=== PATIENT | female | born 1960 | race Caucasian/White ===

== ENCOUNTER → 2019-12-06 11:53 | Outpatient (BNVA) | payer MEDICARE, SELFPAY | PROVIDERS: Family Provider Nurse Practitioner Family; Visit Provider Nurse Practitioner Family | DX: R53.83 Other fatigue (principal); R51.9 Headache, unspecified; Z13.6 Encounter for screening for cardiovascular disorders; Z79.899 Other long term (current) drug therapy | CPT/HCPCS: 80053; 80061; 82306; 82607; 83735; 84443; 85025 ==

== ENCOUNTER 2019-12-13 11:12 | Outpatient (CLI) | payer MEDICARE, SELFPAY ==
--- NOTE | 2019-12-13 11:45 | CT_ITS ---
WS: [id number] CT HEAD NONCONTRAST HISTORY: chronic daily headache, worsening over last 6-8 months TECHNIQUE: Contiguous axial imaging performed through the brain in 2.5 mm imaging. Bone and soft tiss ue windows. All CT scans at [facility] use at least one of these dose optimization techniq ues: automated exposure control; mA and/or kV adjustment per patient size (includes targeted exams wh ere dose is matched to clinical indication); or iterative reconstruction. DLP: 752.58 mGycm COMPARISON: 03/24/2012 No acute intracranial hemorrhage, midline shift or mass effect. Mild atrophy and mild chronic microvascular ischemic disease. No focal areas sulcal effacement. No pr ior infarcts. Ventricles: Normal size with no hydrocephalus. Paranasal sinuses: As visualized are clear. Mastoid air cells: Well pneumatized. Calvarium and scalp: Skull is intact with no soft tissue edema or swelling. CT/CT head wo con* [id number] IMPRESSION: Mild atrophy and chronic ischemic disease. No acute infarcts or edema.
== END 2019-12-13 11:13 | disposition home or self-care (01) ==
LOC: RADWPI 11:17
PROVIDERS: PCP Nurse Practitioner Family; Visit Provider Nurse Practitioner Family
DX: R51.9 Headache, unspecified (principal); I67.82 Cerebral ischemia; G31.9 Degenerative disease of nervous system, unspecified
CPT/HCPCS: 70450

== ENCOUNTER → 2020-07-12 11:39 | Outpatient (BNVA) | payer MEDICARE, SELFPAY | PROVIDERS: PCP Nurse Practitioner Family; Visit Provider Nurse Practitioner Family | DX: Z12.39 Encounter for other screening for malignant neoplasm of breast (principal); Z78.0 Asymptomatic menopausal state; F41.9 Anxiety disorder, unspecified; E55.9 Vitamin D deficiency, unspecified; Z13.6 Encounter for screening for cardiovascular disorders | CPT/HCPCS: 80053; 80061; 82306; 85025 ==

== ENCOUNTER → 2020-12-07 11:00 | Outpatient (BNVA) | payer MEDICARE, SELFPAY | PROVIDERS: PCP Nurse Practitioner Family; Visit Provider Nurse Practitioner Family | DX: E55.9 Vitamin D deficiency, unspecified (principal); Z13.6 Encounter for screening for cardiovascular disorders; J45.909 Unspecified asthma, uncomplicated; J20.9 Acute bronchitis, unspecified; Z20.822 Contact with and (suspected) exposure to COVID-19 | CPT/HCPCS: 71046; 80053; 80061; 82306; 85025; 87635 ==

== ENCOUNTER → 2021-09-28 09:13 | Outpatient (BNVA) | payer MEDICARE, SELFPAY | PROVIDERS: PCP Nurse Practitioner Family; Visit Provider Nurse Practitioner Family | DX: J45.909 Unspecified asthma, uncomplicated (principal); E78.5 Hyperlipidemia, unspecified; R60.9 Edema, unspecified; Z78.0 Asymptomatic menopausal state; M79.662 Pain in left lower leg; E55.9 Vitamin D deficiency, unspecified; Z13.6 Encounter for screening for cardiovascular disorders | CPT/HCPCS: 71046; 80053; 80061; 82306; 82607; 83735; 83880; 84443; 84550; 85025; 85379; 85651; 86038; 86140; 86200; 86431 ==

== ENCOUNTER 2021-10-02 09:59 | Outpatient (CLI) | payer MEDICARE, SELFPAY ==
--- NOTE | 2021-10-02 10:15 | USCV_ITS ---
Luis Roy Age: 61 Gender: F : 1960 Exam Date: 10/02/2021 10:31 Ordering Phys: Sandra Park MICROPALEONTOLOGIST MICROPALEONTOLOGIST Technologist: Harshal Cho Exam Location: [facility] [place] Indication: swelling/pain PROCEDURES: Venous duplex imaging was performed in only the left lower extremity. In addition, the posterior tibial veins were evaluated. In addition, the posterior tibial and peroneal trunk were evaluated. FINDINGS: All veins examined appear free of thrombus. No filling defects on color Doppler flow analysis. Vein flow and caliber vary with respiration. Increase in venous flow with augmentation. All veins appear compressible.. CONCLUSIONS No evidence of left lower extremity DVT. Jeramy Magana MD (Electronically Signed) Final Date: 02 October 2021 16:24 S
== END 2021-10-02 10:00 | disposition home or self-care (01) ==
LOC: RAD 10:01
PROVIDERS: PCP Nurse Practitioner Family; Visit Provider Nurse Practitioner Family
DX: M79.662 Pain in left lower leg (principal); M79.89 Other specified soft tissue disorders
CPT/HCPCS: 93971

== ENCOUNTER 2021-11-21 11:39 | Outpatient (CLI) | payer MEDICARE, SELFPAY ==
--- NOTE | 2021-11-21 11:52 | MM_ITS ---
WS: [id number] BILATERAL SCREENING DIGITAL MAMMOGRAM WITH CAD HISTORY: Z12.31 - Encounter for screening mammogram for malignant ... COMPARISON: 08/31/2018 Bilateral CC and MLO views with tomosynthesis and synthetic mammography submitted. Computer aided det ection analyzed. Breast composition: There are scattered areas of fibroglandular density. No suspicious masses, microc alcifications or architectural distortion. Stable 8mm nodule upper outer quadrant RIGHT breast is pro bably a lymph node. MM/[place] [id number] IMPRESSION: BI-RADS: 2-Benign FOLLOW UP: 1 Year Follow-up
== END 2021-11-21 11:40 | disposition home or self-care (01) ==
LOC: RAD 11:40
PROVIDERS: PCP Nurse Practitioner Family; Visit Provider Nurse Practitioner Family
DX: Z12.31 Encounter for screening mammogram for malignant neoplasm of breast (principal)
CPT/HCPCS: 77067

== ENCOUNTER → 2021-12-11 08:28 | Outpatient (BNVA) | payer MEDICARE, SELFPAY | PROVIDERS: PCP Nurse Practitioner Family; Referring Provider Nurse Practitioner Family; Visit Provider Internal Medicine Rheumatology | DX: M05.79 Rheumatoid arthritis with rheumatoid factor of multiple sites without organ or systems involvement (principal); Z71.6 Tobacco abuse counseling; Z79.899 Other long term (current) drug therapy; M10.9 Gout, unspecified; Z71.85 Encounter for immunization safety counseling; Z11.59 Encounter for screening for other viral diseases; Z11.1 Encounter for screening for respiratory tuberculosis; Z86.16 Personal history of COVID-19; K21.9 Gastro-esophageal reflux disease without esophagitis | CPT/HCPCS: 99204 ==

== ENCOUNTER → 2022-03-04 11:53 | Outpatient (BNVA) | payer MEDICARE, SELFPAY | PROVIDERS: PCP Nurse Practitioner Family; Visit Provider Nurse Practitioner Family | DX: M10.9 Gout, unspecified (principal); E78.5 Hyperlipidemia, unspecified; E55.9 Vitamin D deficiency, unspecified; K21.9 Gastro-esophageal reflux disease without esophagitis; R60.9 Edema, unspecified; J30.2 Other seasonal allergic rhinitis; J45.909 Unspecified asthma, uncomplicated | CPT/HCPCS: 80053; 80061; 82306; 82607; 83721; 84443; 84550; 85025 ==

== ENCOUNTER → 2024-01-13 12:39 | Outpatient (BNVA) | payer MEDICARE, SELFPAY | PROVIDERS: PCP Nurse Practitioner Family; Visit Provider Nurse Practitioner Family | DX: E55.9 Vitamin D deficiency, unspecified; I10 Essential (primary) hypertension; E78.5 Hyperlipidemia, unspecified; Z79.899 Other long term (current) drug therapy | CPT/HCPCS: 80053; 80061; 82306; 82607; 83036; 83735; 84443; 85025 ==

== ENCOUNTER → 2024-06-28 14:47 | Outpatient (BNVA) | payer MEDICARE, SELFPAY | PROVIDERS: PCP Nurse Practitioner Family; Visit Provider Nurse Practitioner Family | DX: F41.9 Anxiety disorder, unspecified (principal); F32.A Depression, unspecified; E78.5 Hyperlipidemia, unspecified; E55.9 Vitamin D deficiency, unspecified | CPT/HCPCS: 80053; 80061; 82306; 82607; 84443; 85025 ==

== ENCOUNTER → 2024-08-04 10:08 | Outpatient (BNVA) | payer MEDICARE, SELFPAY | PROVIDERS: PCP Nurse Practitioner Family; Visit Provider Nurse Practitioner Family | DX: D48.5 Neoplasm of uncertain behavior of skin (principal); L91.8 Other hypertrophic disorders of the skin; D22.5 Melanocytic nevi of trunk; L81.4 Other melanin hyperpigmentation; L57.8 Other skin changes due to chronic exposure to nonionizing radiation; I78.8 Other diseases of capillaries; L57.0 Actinic keratosis; X32.XXXA Exposure to sunlight, initial encounter | CPT/HCPCS: 17000; 99203 ==

== ENCOUNTER → 2024-10-07 11:16 | Outpatient (BNVA) | payer MEDICARE, SELFPAY | PROVIDERS: PCP Nurse Practitioner Family; Visit Provider Nurse Practitioner Family | DX: L57.0 Actinic keratosis (principal); X32.XXXA Exposure to sunlight, initial encounter; D48.5 Neoplasm of uncertain behavior of skin; L91.8 Other hypertrophic disorders of the skin; L57.8 Other skin changes due to chronic exposure to nonionizing radiation; L81.4 Other melanin hyperpigmentation | CPT/HCPCS: 99213 ==

== ENCOUNTER 2024-11-24 18:22 | Emergency (ER) | payer MEDICARE, SELFPAY ==
[2024-11-24] VITALS (7 sets, daily range): BP systolic 126–210; BP diastolic 74–89; PULSE 63–73; TEMP 36.8; O2SAT 91–98
--- NOTE | 2024-11-24 18:28 | ECG_ITS ---
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
--- NOTE | 2024-11-24 20:46 | ECG_ITS ---
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 Measurements Intervals [place] Rate: 60 P: 68 IN: 147 QRS: 57 QRSD: 94 T: 189 QT: 387 QTc: 387 Interpretive Statements SINUS RHYTHM WITH SINUS ARRHYTHMIA ST DEVIATION AND MODERATE T-WAVE ABNORMALITY, CONSIDER LATERAL ISCHEMIA [-0.1+ mV T-WAVE IN I/aVL/V5/V6] Compared to ECG 11/24/2024 18:28:33 No significant changes Electronically Signed On 11-24-2024 21:00:37 CDT by Morteza Guerin M.D. [id number] [id number]
[2024-11-24 21:15] LABS: Hematocrit 42.7 % (36-47); Hemoglobin 14.40 g/dL (11.27-16.99); Mean Corpuscular HGB Conc 33.7 g/dL (30-55); Mean Corpuscular Hemoglobin 32.6 pg (27-33); Mean Corpuscular Volume 96.6 fl (85-98); Nucleated Red Blood Cells % 0 %; Platelet Count 354 10^3/cmm (157-399); Red Blood Count 4.42 10^6/uL (3.85-5.65); White Blood Count 9.69 10^3/uL (3.29-11.43)
--- NOTE | 2024-11-24 21:20 | ED_ITS ---
HPI - General Adult 2 General: Chief complaint: General Medical Stated complaint: HBP and tingly and numbess on both sides Time Seen by Provider: 11/24/24 20:08 History of Present Illness: 64yo F w/pmhx of HTN, COPD/asthma, curre nt smoker, GERD, CVA w/mild R sided weakness presents w/cc of feeling unwell. Patient has not been feeling well for the past few days. What brought her to the emergency department was an episode today where she started to feel flushed, sweaty, tingly. She was also experiencing palpitations. She states that her feet were on fire and she had paresthesias of her scalp, chest and hands. She also measured her blood pressure at that time and it was high. She has been diagnosed w/HTN but has not been taking her medications for fear of allergic reaction. Patient states that she suffers from severe anxiety and has panic attacks. She has not had a fever. She denies malaise, chills or rigors. Patient is experiencing a little bit of sharp and stabbing chest tightness (no ongoing pain) which are intermittent, not radiating to the neck, jaw or arms and is not clearly exertional. She states breathing makes it a bit worse but otherwise no triggers. She has felt a bit more short of breath with exertion and has been using her inhalers more often. She denies abd pain but has felt a bit nauseated. She's not vomited. No diarrhea, dysuria or increased frequency. Related Data Home Medications ?Medication ?Instructions ?Recorded ?Confirmed acetaminophen 500 mg capsule 500 mg PO Q6H PRN 2 11/19/24 Previous Rx's ?Medication ?Instructions ?Recorded ergocalciferol (vitamin D2) 1,250 1,250 mcg PO .weekly #12 caps 02/05/24 mcg (50,000 unit) capsule mecobalamin (vitamin B12) 5,000 5,000 mcg PO DAILY #90 tabs 02/05/24 mcg disintegrating tablet albuterol sulfate 2.5 mg/3 mL 2.5 mg (3 mL) inhalation QID PRN 06/28/24 (0.083 %) solution for nebulization shortness of breat h or wheezing #180 mL atorvastatin 10 mg tablet (Lipitor) 10 mg PO DAILY #90 tabs 07/02/24 buspirone 10 mg tablet See Rx Instructions .Route 0 09/01/24 .COMPLEX #60 tabs albuterol sulfate 90 mcg/actuation See Rx Instructions .Route 11/19/24 aerosol inhaler .COMPLEX #18 grams losartan 100 mg tablet 100 mg PO DAILY #30 tabs 12/04 nicotine See Rx Instructions transder mal 11/19/24 21mg/24hr-14mg/24hr-7mg/24hr daily .COMPLEX #56 patche s transderm patches,sequentl pantoprazole 40 mg tablet,delayed 40 mg PO DAILY #30 t abs 11/19/24 release (Protonix) Allergies Allergy/AdvReac Type Severity Reaction Status Date / Time cefaclor (From [facility]) Allergy Severe cardiac Verified 11/24/24 18:33 arrest Penicillins Allergy Severe hives Verified 11/24/24 18:33 tetanus and diphtheria Allergy Severe swelling Verified 11/24/24 18:33 toxoids acetaminophen (From Percocet) Allergy Unknown Unknown Verified 11/24/24 18:33 codeine Allergy Unknown Unknown Verified 11/24/24 18:33 erythromycin base Allergy Unknown Unknown Verified 11/24/24 18:33 iodine Allergy Unknown Unknown Verified 11/24/24 18:33 NSAIDS (Non-Steroidal Allergy Unknown unknown Verified 11/24/24 18:33 Anti-Inflamma oxycodone (From Percocet) Allergy Unknown Unknown Verified 11/24/24 18:33 propoxyphene (From Allergy Unknown Unknown Verified 11/24/24 18:33 Darvocet-N) tramadol Allergy Unknown Unknown Verified 11/24/24 18:33 Sulfa (Sulfonamide Allergy unknown Verified 11/24/24 18:33 Antibiotics) PFSH ED 2 PFSH: Medical History (Updated 11/25/24 @ 00:53 by Chanelle Desouza MD) Psychiatric care Immunization counseling High risk medication use Gout GERD (gastroesophageal reflux disease) Seropositive rheumatoid arthritis of multiple sites Hiatal hernia TMJ (dislocation of temporomandibular joint) Back injury Asthma Chronic GERD Surgical History Previous back surgery H/O: section Family History Father CAD (coronary artery disease) Mother Hypertension Rheumatoid arthritis Other Cancer Diabetes Family history of premature coronary artery disease Lung disease Stroke Denies family history of Lupus Chronic kidney disease (CKD) Social History Smoking and tobacco/nicotine status: current every day tobacco/nicotine user (1 PPD) Second hand smoke exposure: Yes Alcohol intake: never Substance/Drug Use: never Caregiver/support person: Yes (spouse) Lives independently: Yes Household members: spouse Marital status: service: No Current occupational status: disabled Current gender identity: Female Special eneida needs: No Physical Exam 2 Narrative: EXAM NARRATIVE: Vital signs were reviewed. Patient is alert and oriented. Patient is breathing comfortably, no increased WOB or accessory muscle use. SpO2 is above 95% on RA. She has occasional and mild expiratory wheeze. No hypotension or tachycardia. She is quite hypertensive. Patient is moving all extremities, no deformity or gross injury. No LE edema or asymmetry. On exam, patient is very anxious, reports high anxiety. Course 2 Vital Signs: Vital signs: Vital Signs Temperature 98.3 F 11/24/24 18:23 Pulse Rate 67 11/25/24 00:30 Respiratory Rate 17 11/25/24 00:30 Blood Pressure 134/68 11/25/24 00:30 Pulse Oximetry 94 11/25/24 00:30 Oxygen Delivery Me thod Room Air 11/25/24 00:30 MDM - General Adult Medical Decision Making Patient is a 64-year-old female with a history of asthma/COPD, high blood pressure, anxiety and panic attacks presents with a chief complaint of episode of nausea, sweating, tingling in extremities and scalp and anxiety. Differential diagnosis includes but is not limited to, ACS, palpitations, muscle cramps, dehydration, electrolyte abnormality, underlying illness such as pneumonia, urinary tract infection, COPD/asthma exacerbation, anxiety/panic attack, asymptomatic hypertension vs hypertensive emergency. On initial exam, patient is alert, oriented and does not appear toxic. She is quite hypertensive but on repeat measurement this decreases significantly without any intervention. Patient does not appear to have any new neurologic deficits and paresthesias and chest tightness have resolved with ativan treatment. On reassessment, patient is feeling much better. She was screened with CBC, CMP, troponin, BNP, EKG. Patient was also treated for her high blood pressure with her home medication. Her repeat blood pressure is 157/87 and she states she is feeling much less anxious. Patient has a normal white blood cell count and is not anemic. She does not have any actionable electrolyte abnormalities. She has a minimally elevated troponin with a negative delta (less than 4). UA does not demonstrate evidence of infection. At this time, patient wishes to go home. I reiterated the importance of taking her blood pressure medications as prescribed. Patient expressed understanding. She was counseled on supportive care at home, given return precautions and patient was discharged in stable condition. Lab Data 11/24/24 21:02 11/24/24: Laboratory Results WBC 9.69 10^3/uL (3.29-11.43) 11/24/24: RBC 4.42 10^6/uL (3.85-5.65) 11/24/24: Hgb 14.40 g/dL (11.27-16.99) 11/24/24: Hct 42.7 % (36-47) 11/24/24: MCV 96.6 fl (85-98) 11/24/24: MCH 32.6 pg (27-33) 11/24/24: MCHC 33.7 g/dL (30-55) 11/24/24: RDW 12.8 % (12.1-15.1) 11/24/24: Plt Count 354 10^3/cmm (157-399) 11/24/24: MPV 8.7 fL (7.4-10.4) 11/24/24: Neut % (Auto) 61.3 % 11/24/24: Lymph % (Auto) 31.9 % 11/24/24: [place] % (Auto) 5.1 % 11/24/24: Eos % (Auto) 1.0 % 11/24/24: Baso % (Auto) 0.4 % 11/24/24: Neut # (Auto) 5.94 10^3/uL (1.8-7.7) 11/24/24: Lymph # (Auto) 3.1 10^3/uL (0.8-4.8) 10/15/25 21:02 [place] # (Auto) 0.5 10^3/uL (0.2-0.9) 11/24/24 21:02 Eos # (Auto) 0.1 10^3/uL (0.0-0.8) 11/24/24 21:02 Baso # (Auto) 0.0 10^3/uL (0.0-0.1) 11/24/24 21:02 Nucleated RBC % (auto) 0 % 11/24/24 21:02 Nucleated RBCs # 0.0 /100WBC 11/24/24 21:02 Sodium 138 mmol/L (136-145) 11/24/24 21:02 Potassium 4.5 mmol/L (3.5-5.1) 11/24/24 21:02 Chloride 99 mmol/L (98-107) 11/24/24 21:02 Carbon Dioxide 24 mmol/L (22-29) 11/24/24 21:02 Anion Gap 19.5 (5-19) H 11/24/24 21:02 BUN 15 mg/dL (8-23) 11/24/24 21:02 Creatinine 0.8 mg/dL (0.5-0.9) 11/24/24 21:02 GFR Calculation 72.7 mL/min (90-130) L 11/24/24 21:02 Glucose 102 mg/dL (65-115) 11/24/24 21:02 Calculated Osmolality 287 mOsm/kg (285-295) 11/24/24 21:02 Calcium 9.9 mg/dL (8.5-10.5) 11/24/24 21:02 Total Bilirubin 0.3 mg/dL (0.15-1.2) 11/24/24 21:02 AST 22 U/L (0-32) 11/24/24 21:02 ALT 21 U/L (0-33) 11/24/24 21:02 Alkaline Phosphatase 115 U/L (35-105) H 11/24/24 21:02 Troponin T Baseline 13 ng/L (0-10) H 11/24/24 21:02 Troponin T 120 Minute 9.79 ng/L (0-10) 11/24/24 23:48 Delta Troponin T -3.21 ABS# (0-10) L 11/24/24 23:48 NT-Pro-B Natriuret Pep < 36 pg/mL (0-125) 11/24/24 21: Total Protein 7.8 g/dL (6.6-8.7) 11/24/24 21: Albumin 5.0 g/dL (3.5-5.2) 11/24/24 21: Globulin 2.8 g/dL (1.3-4.6) 11/24/24 21: Urine Color Yellow (Yellow) 11/24/24: Urine Appearance Cloudy (CLEAR) A 11/24/24: Urine pH 5.5 (5-7) 11/24/24: Ur Specific [place] 1.011 (1.005-1.030) 11/24/24: Urine Protein Negative (Negative) 11/24/24 Urine Glucose (UA) Negative (Normal) 11/24/24 Urine Ketones Negative (Negative) 11/24/24 Urine Blood 1+ (Negative) A 11/24/24 Urine Nitrate Negative (Negative) 11/24/24: Urine Bilirubin Negative (Negative) 11/24/24: Urine Urobilinogen 0.2 mg/dL (Negative) 11/24/24: Ur Leukocyte Esterase Negative (Negative) 11/24/24: Urine RBC 0-2 /hpf (0-2) 11/24/24: Urine WBC 0-5 /hpf (0-5) 11/24/24: Ur Squamous Epith Cells 6-10 /hpf (0-5) 11/24/24 Amorphous Sediment Not Reportable 11/24/24: Urine Bacteria Trace /hpf (NONE) 11/24/24 Hyaline Casts 0.81 /lpf 11/24/24: No radiology studies performed this visit Discharge Plan Discharge Patient Disposition: Home Clinical Impression: Anxiety disorder with panic attacks, Asymptomatic hypertension, Noncompliance with medication regimen Condition: Stable Prescriptions: No Action ergocalciferol (vitamin D2) 1,250 mcg (50,000 unit) capsule 1,250 mcg PO .weekly Qty: 12 1RF mecobalamin (vitamin B12) 5,000 mcg tablet,disintegrating 5,000 mcg PO DAILY Qty: 90 1RF acetaminophen 500 mg capsule 500 mg PO Q6H PRN albuterol sulfate 2.5 mg /3 mL (0.083 %) solution for nebulization 2.5 mg INHALATION QID PRN (Reason: shortness of breath or wheezing) Qty: 180 2RF pantoprazole [Protonix] 40 mg tablet,delayed release (DR/EC) 40 mg PO DAILY Qty: 30 0RF losartan 100 mg tablet 100 mg PO DAILY Qty: 30 0RF nicotine 21-14-7 mg/24 hr patch, TD daily, sequential See Rx Instructions transdermal .COMPLEX Qty: 56 0RF Rx Instructions: apply 1-21 mg NICOTINE PATCH daily for 28 days; follow with 1-14 mg PATCH daily for 14 days, then 1-7mg PATCH daily for 14 days transdermal albuterol sulfate 90 mcg/actuation HFA aerosol inhaler See Rx Instructions .ROUTE .COMPLEX Qty: 18 0RF Dose Instruction: INHALE 2 PUFFS BY MOUTH EVERY 4 HOURS Rx Instructions: INHALE 2 PUFFS BY MOUTH EVERY 6 HOURS PRN atorvastatin [Lipitor] 10 mg tablet 10 mg PO DAILY Qty: 90 0RF buspirone 10 mg tablet See Rx Instructions .ROUTE .COMPLEX Qty: 60 0RF Dose Instruction: TAKE 1 TABLET BY MOUTH TWICE DAILY Rx Instructions: TAKE 1 TABLET BY MOUTH TWICE DAILY Discharge Orders: Discharge ED (Routine); Ordered 11/25/24 Ordered By: Chanelle Desouza Referrals: Sandra Park FNP [Primary Care Provider, Family Practice] Patient Instructions: Opioid Safety, Pain Management, Patient Portal & Tj Instructions, Hypertension (ED), Anxiety (ED) Activity Restrictions/Additional Instructions: It is very important that you continue to take your blood pressure medication at home as prescribed. While you may not feel any signs or symptoms when you have high blood pressure, chronic uncontrolled high blood pressure may lead to damage of your vasculature and lead to risk of stroke, heart attacks, kidney failure among other complications. Continue to monitor your condition closely at home. If your condition worsens or additional concerns arise, please return to the emergency department for reassessment. Please follow-up with your primary care physician within 72 hours of your ED visit to recheck your blood pressure. It may help your doctor to document your blood pressure daily at home to see if you may need an adjustment of your medical regimen. Also talk to your primary care physician about your anxiety and consider an appointment with a mental health care professionals. Print Language: Cambodian Coding Level of Care Code ED Count Team Member for Kirk Cabral
[2024-11-24 21:34] LABS: Glucose Urine UA Negative (Normal); Nitrate Urine Negative (Negative); Specific Gravity, Urine 1.011 (1.005-1.030)
[2024-11-24] MEDS: LOSARTAN 100 MG TABLET PO (21:36)
[2024-11-24 21:39] LABS: Add Urine Microscopic? YES
[2024-11-24 21:42] LABS: Troponin(5th) Baseline 13 ng/L (0-10)
[2024-11-24 21:52] LABS: Alanine Aminotransferase 21 U/L (0-33); Albumin Level 5.0 g/dL (3.5-5.2); Alkaline Phosphatase 115 U/L (35-105); Anion Gap 19.5 (5-19); Aspartate Amino Transferase 22 U/L (0-32); Blood Urea Nitrogen 15 mg/dL (8-23); Calcium 9.9 mg/dL (8.5-10.5); Carbon Dioxide 24 mmol/L (22-29); Chloride 99 mmol/L (98-107); Creatinine Clr Calc Pharmacy 79.1719; Globulin 2.8 g/dL (1.3-4.6); Glucose 102 mg/dL (65-115); NT Pro B Type Natriuretic Pept < 36 pg/mL (0-125); Osmolality Calculated 287 mOsm/kg (285-295); Potassium 4.5 mmol/L (3.5-5.1); Sodium 138 mmol/L (136-145); Total Protein 7.8 g/dL (6.6-8.7)
[2024-11-25] VITALS: BP 132/73; PULSE 69; RESP 16; O2SAT 96
[2024-11-25 00:13] LABS: Troponin 5 2HR 9.79 ng/L (0-10)
[2024-11-25 00:14] LABS: Troponin 5 2HR Delta -3.21 ABS# (0-10)
[2024-11-25 00:30] VITALS: BP 134/68; PULSE 67; RESP 17; O2SAT 94
== END 2024-11-25 01:47 | disposition home or self-care (01) ==
PROVIDERS: Emergency Provider Emergency Medicine; PCP Nurse Practitioner Family
DX: F41.8 Other specified anxiety disorders (principal); F41.0 Panic disorder [episodic paroxysmal anxiety]; I10 Essential (primary) hypertension; Z91.148 Patient's other noncompliance with medication regimen for other reason; F17.210 Nicotine dependence, cigarettes, uncomplicated
CPT/HCPCS: 36415; 80053; 81001; 83880; 84484; 85025; 93005; 99284; J9999

== ENCOUNTER → 2024-12-03 13:46 | Outpatient (BNVA) | payer MEDICARE, SELFPAY | PROVIDERS: PCP Nurse Practitioner Family; Visit Provider Nurse Practitioner Family | DX: Z79.899 Other long term (current) drug therapy (principal); R31.9 Hematuria, unspecified | CPT/HCPCS: 81003; 87086 ==

== ENCOUNTER 2024-12-24 11:43 | Outpatient (CLI) | payer MEDICARE, SELFPAY ==
--- NOTE | 2024-12-24 11:47 | XR_ITS ---
WS: [id number] Exam: XR lumbar spine 2-3V* [id number] Date/Time of Exam: 12/24/2024 12:05 PM Reason For Exam: M54.50 - Low back pain, unspecified DLP: There is operative fusion of the spine from L4-S1 with pedicle screws and posterior rods. Disc spacers are noted. This fusion is in good alignment. No hardware complication seen. There is mild degenerative anterolisthesis of L3 on L4 and L2 on L3. Facet arthropathy at all levels. There is straightening and reversal of the lumbar lordosis. XR/XR lumbar spine 2-3V* [id number] IMPRESSION: 1. Stable appearing L4-S1 fusion 2. Grade 1 degenerative anterolisthesis of L3 on L4 and L2 on L3 secondary to f acet degeneration. This causes straightening and reversal of the lumbar lordosi s.
== END 2024-12-24 11:44 | disposition home or self-care (01) ==
LOC: RAD 11:44
PROVIDERS: PCP Nurse Practitioner Family; Visit Provider Nurse Practitioner Family
DX: M54.50 Low back pain, unspecified (principal); M43.27 Fusion of spine, lumbosacral region; Z98.1 Arthrodesis status; M47.896 Other spondylosis, lumbar region; M40.46 Postural lordosis, lumbar region
CPT/HCPCS: 72100

== ENCOUNTER 2024-12-27 10:37 | Emergency (ER) | payer MEDICARE, SELFPAY ==
[2024-12-27 10:49] VITALS: BP 163/86; PULSE 72; RESP 17; TEMP 36.8; O2SAT 97; BMI 29.2
--- NOTE | 2024-12-27 10:58 | ECG_ITS ---
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 Measurements Intervals [place] Rate: 56 P: 0 GA: 0 QRS: 22 QRSD: 102 T: 177 QT: 386 QTc: 372 Interpretive Statements SINUS BRADYCARDIA WITH 2ND DEGREE AV BLOCK, 2:[address] DEVIATION AND MODERATE T-WAVE ABNORMALITY, CONSIDER LATERAL ISCHEMIA [-0.1+ mV T-WAVE IN I/aVL/V5/V6] CRITICAL TEST RESULT Compared to ECG 11/24/2024 20:46:51 Sinus rhythm no longer present Sinus arrhythmia no longer present T-wave abnormality still present Possible ischemia still present Electronically Signed On 12-29-2024 09:50:15 CAR RENTAL DELIVERER by El Renteria M.D. [id number] [id number]
--- NOTE | 2024-12-27 11:00 | ECG_ITS ---
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 Measurements Intervals [place] Rate: 64 P: 73 NE: 138 QRS: 26 QRSD: 88 T: 158 QT: 384 QTc: 399 Interpretive Statements SINUS RHYTHM ST DEVIATION AND MODERATE T-WAVE ABNORMALITY, CONSIDER LATERAL ISCHEMIA [-0.1+ mV T-WAVE IN I/aVL/V5/V6] Compared to ECG 12/27/2024 10:58:04 Sinus bradycardia no longer present T-wave abnormality still present Possible ischemia still present Electronically Signed On 12-30-2024 00:25:23 MAGNETO REPAIRER by El Renteria M.D. [id number] [id number]
--- NOTE | 2024-12-27 11:27 | ECG_ITS ---
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 Measurements Intervals [place] Rate: 57 P: 53 [place]: 148 QRS: 21 QRSD: 88 T: 174 QT: 411 QTc: 401 Interpretive Statements SINUS BRADYCARDIA ST DEVIATION AND MODERATE T-WAVE ABNORMALITY, CONSIDER LATERAL ISCHEMIA [-0.1+ mV T-WAVE IN I/aVL/V5/V6] Compared to ECG 12/27/2024 11:00:32 Sinus rhythm no longer present T-wave abnormality still present Possible ischemia still present Electronically Signed On 12-29-2024 09:49:42 CANADIAN BACON TIER by El Renteria M.D. [email or web address] [id number]
--- NOTE | 2024-12-27 11:27 | XR_ITS ---
WS: [id number] XR chest 1V portable [id number] REASON FOR EXAM: chest pain FINDINGS: The chest is unchanged compared to 09/28/2021. The heart and the mediastinum are within normal limits. Calcified granulomatous disease bilaterally with dominant calcified nodule in the right midlung field. No acute pulmonary parenchymal or pleural abnormality is identified. XR/XR chest 1V portable [id number] IMPRESSION: Stable chest without acute abnormality.
--- NOTE | 2024-12-27 11:37 | ED_ITS ---
HPI - General Adult 2 General: Chief complaint: General Medical Stated complaint: shakes, fatigue after taking anxiety meds Time Seen by Provider: 12/27/24 11:26 History of Present Illness: 62-year-old female presents emergency ro om with shakes fatigue generally not feeling well she taking anxiety medicine earlier she also manage twisted her neck particular to the vertebrae felt a popping sensation and then briefly felt like she was going to pass out she never did lose consciousness. She has had similar episodes before. She is reporting numbness and tingling that was going on throughout her body that is improved. She has chronic back pain chronic lower extremity numbness and tingling. That is still present but not as prominent at the moment. She had some mild chest heaviness when she had the episode but it was very brief and is already resolved. Associated symptoms: Deny chest pain, dyspnea or rash Related Data Home Medications ?Medication ?Instructions ?Recorded ?Confirmed acetaminophen 500 mg capsule 500 mg PO Q6H PRN 2 12/03/24 Previous Rx's ?Medication ?Instructions ?Recorded ergocalciferol (vitamin D2) 1,250 1,250 mcg PO .weekly #12 caps 02/05/24 mcg (50,000 unit) capsule mecobalamin (vitamin B12) 5,000 5,000 mcg PO DAILY #90 tabs 02/05/24 mcg disintegrating tablet albuterol sulfate 2.5 mg/3 mL 2.5 mg (3 mL) inhalation QID PRN 06/28/24 (0.083 %) solution for nebulization shortness of breat h or wheezing #180 mL atorvastatin 10 mg tablet (Lipitor) 10 mg PO DAILY #90 tabs 07/02/24 nicotine See Rx Instructions transder mal 11/19/24 21mg/24hr-14mg/24hr-7mg/24hr daily .COMPLEX #56 patche s transderm patches,sequentl pantoprazole 40 mg tablet,delayed 40 mg PO DAILY #30 t abs 11/19/24 release (Protonix) amitriptyline 10 mg tablet 10 mg PO DAILY #30 tabs losartan 100 mg tablet 100 mg PO DAILY #90 tabs 07/04 albuterol sulfate 90 mcg/actuation See Rx Instructions .Route 12/16/24 aerosol inhaler .COMPLEX #18 grams buspirone 10 mg tablet See Rx Instructions .Route 1 02/16/24 .COMPLEX #60 tabs Allergies Allergy/AdvReac Type Severity Reaction Status Date / Time cefaclor (From Ceclor) Allergy Severe cardiac Verified 11/24/24 18:33 arrest Penicillins Allergy Severe hives Verified 11/24/24 18:33 tetanus and diphtheria Allergy Severe swelling Verified 11/24/24 18:33 toxoids acetaminophen (From Percocet) Allergy Unknown Unknown Verified 11/24/24 18:33 codeine Allergy Unknown Unknown Verified 11/24/24 18:33 erythromycin base Allergy Unknown Unknown Verified 11/24/24 18:33 iodine Allergy Unknown Unknown Verified 11/24/24 18:33 NSAIDS (Non-Steroidal Allergy Unknown unknown Verified 11/24/24 18:33 Anti-Inflamma oxycodone (From Percocet) Allergy Unknown Unknown Verified 11/24/24 18:33 propoxyphene (From Allergy Unknown Unknown Verified 11/24/24 18:33 Darvocet-N) tramadol Allergy Unknown Unknown Verified 11/24/24 18:33 aspirin Allergy ALGY-Anaphy Verified 12/27/24 12:11 laxis Sulfa (Sulfonamide Allergy unknown Verified 11/24/24 18:33 Antibiotics) Review of Systems 2 Const: Denies: fever(s) or chills Card: Denies: chest pain Resp: Denies: dyspnea GI: Denies: abdominal pain : Denies: dysuria, urinary frequency or urinary urgency Musc: Denies: neck pain or back pain Skin/Breast: Denies: rash PFSH ED 2 PFSH: Medical History Psychiatric care Immunization counseling High risk medication use Gout GERD (gastroesophageal reflux disease) Seropositive rheumatoid arthritis of multiple sites Hiatal hernia TMJ (dislocation of temporomandibular joint) Back injury Asthma Chronic GERD Surgical History Previous back surgery H/O: section Family History Father CAD (coronary artery disease) Mother Hypertension Rheumatoid arthritis Other Cancer Diabetes Family history of premature coronary artery disease Lung disease Stroke Denies family history of Lupus Chronic kidney disease (CKD) Social History Smoking and tobacco/nicotine status: current every day tobacco/nicotine user (1 PPD) Second hand smoke exposure: Yes Alcohol intake: never Substance/Drug Use: never Caregiver/support person: Yes (spouse) Lives independently: Yes Household members: spouse Marital status: service: No Current occupational status: disabled Current gender identity: Female Special eneida needs: No Physical Exam 2 Const: COMMON NORMALS: no acute distress GENERAL APPEARANCE: cooperative and comfortable ORIENTATION/CONSCIOUSNESS: Yes awake, Yes oriented to person, Yes oriented to place and Yes oriented to time HENMT: COMMON NORMALS: normocephalic, atraumatic and hearing grossly normal bilaterally HEAD & SCALP: normocephalic and atraumatic Resp: COMMON NORMALS: normal respiratory effort, No retractions, No use of accessory muscles and clear to auscultation bilaterally AUSCULTATION: clear to auscultation bilaterally Cardio: COMMON NORMALS: regular rate, regular rhythm and No murmurs present (Cardio) RATE: regular rate RHYTHM: regular rhythm GI: COMMON NORMALS: Soft to palpation and No hepatosplenomegaly present A USCULTATION: Yes normoactive bowel sounds PALPATION: Yes Soft to palpation, No Tenderness to palpation present (GI), No Guarding due to palpation present (GI) and Yes No hepatosplenomegaly present Extremity: COMMON NORMALS: normal to inspection, capillary refill normal, no clubbing, cyanosis or edema, no calf tenderness and no pedal edema Neuro: SENSORIUM/ORIENTATION: Yes oriented to person, Yes oriented to place and Yes oriented to time Skin: COMMON NORMALS: no rashes or lesions noted GENERAL SKIN EXAM: no rashes or lesions noted Course 2 Vital Signs: Vital signs: Vital Signs Temperature 98.3 F 12/27/24 10:49 Pulse Rate 58 L 12/27/24 14:13 Respiratory Rate 17 12/27/24 10:49 Blood Pressure 155/76 12/27/24 14:13 Pulse Oximetry 95 12/27/24 14:13 Oxygen Delivery Me thod Room Air 12/27/24 12:05 [facility] - General Adult Medical Decision Making No further symptoms at this time patient does admit to having some anxiety she had lightheaded and dizziness after she had articulated her neck. On exam she has no focal neurologic deficits nothing suggestive of a stroke workup is otherwise negative labs reviewed. Discussed with the patient cardiac enzymes and EKGs unremarkable have her follow-up with primary care doctor. Medical Records I reviewed the patient's medical records. Lab Data I reviewed the patient's lab results. 12/27/24 11:34 12/27/24 11:34 Radiology Impressions Chest X-Ray 12/27/24 11:27 IMPRESSION: Stable chest without acute abnormality. Laboratory Results WBC 7.76 10^3/uL (3.29-11.43) 12/27/24 11:34 RBC 4.54 10^6/uL (3.85-5.65) 12/27/24 11:34 Hgb 14.80 g/dL (11.27-16.99) 12/27/24 11:34 Hct 43.9 % (36-47) 12/27/24 11:34 MCV 96.7 fl (85-98) 12/27/24 11:34 MCH 32.6 pg (27-33) 12/27/24 11:34 MCHC 33.7 g/dL (30-55) 12/27/24 11:34 RDW 13.0 % (12.1-15.1) 12/27/24 11:34 Plt Count 412 10^3/cmm (157-399) H 12/27/24 11:34 MPV 8.4 fL (7.4-10.4) 12/27/24 11:34 Neut % (Auto) 71.7 % 12/27/24 11:34 Lymph % (Auto) 21.9 % 12/27/24 11:34 [place] % (Auto) 4.9 % 12/27/24 11:34 Eos % (Auto) 0.9 % 12/27/24 11:34 Baso % (Auto) 0.5 % 12/27/24 11:34 Neut # (Auto) 5.56 10^3/uL (1.8-7.7) 12/27/24 11:34 Lymph # (Auto) 1.7 10^3/uL (0.8-4.8) 12/27/24 11:34 [place] # (Auto) 0.4 10^3/uL (0.2-0.9) 12/27/24 11:34 Eos # (Auto) 0.1 10^3/uL (0.0-0.8) 12/27/24 11:34 Baso # (Auto) 0.0 10^3/uL (0.0-0.1) 12/27/24 11:34 Nucleated RBC % (auto) 0 % 12/27/24 11:34 Nucleated RBCs # 0.0 /100WBC 12/27/24 11:34 Sodium 141 mmol/L (136-145) 12/27/24 11:34 Potassium 4.3 mmol/L (3.5-5.1) 12/27/24 11:34 Chloride 103 mmol/L (98-107) 12/27/24 11:34 Carbon Dioxide 28 mmol/L (22-29) 12/27/24 11:34 Anion Gap 14.3 (5-19) 12/27/24 11:34 BUN 8 mg/dL (8-23) 12/27/24 11:34 Creatinine 0.7 mg/dL (0.5-0.9) 12/27/24 11:34 GFR Calculation 84.8 mL/min (90-130) L 12/27/24 11:34 Glucose 95 mg/dL (65-115) 12/27/24 11:34 Calculated Osmolality 290 mOsm/kg (285-295) 12/27/24 11:34 Calcium 9.8 mg/dL (8.5-10.5) 12/27/24 11:34 Total Bilirubin 0.3 mg/dL (0.15-1.2) 12/27/24 11:34 AST 17 U/L (0-32) 12/27/24 11:34 ALT 16 U/L (0-33) 12/27/24 11:34 Alkaline Phosphatase 122 U/L (35-105) H 12/27/24 11:34 Troponin T Baseline 11 ng/L (0-10) H 12/27/24 11:34 Troponin T 120 Minute 10.19 ng/L (0-10) H 12/27/24 13:18 Delta Troponin T -0.81 ABS# (0-10) L 12/27/24 13:18 Total Protein 7.5 g/dL (6.6-8.7) 12/27/24 11:34 Albumin 4.9 g/dL (3.5-5.2) 12/27/24 11:34 Globulin 2.6 g/dL (1.3-4.6) 12/27/24 11:34 All radiology interpretation(s) finalized by discharge EKG Data EKG 1: I personally reviewed and interpreted this EKG as follows: Interpretation: EKG 12/28/2019 5:11 AM sinus rhythm nonspecific ST changes. No acute ST elevation rate is 64 [place] interval 138 QTc 394. T wave inversion in 1 to aVL V5 and V6. Compared to EKG done on 11/24/2024 no significant changes there were T wave inversions in V5 and 6 on that EKG as well. Also T wave inversion in leads I, II and aVL were previously present no changes. Computer generated interpretation: Chest X-Ray 12/27/24 11:27 IMPRESSION: Stable chest without acute abnormality. EKG 2: I personally reviewed and interpreted this EKG as follows: Interpretation: EKG 1117 2025-01-24 sinus bradycardia rate of 57 KS interval 148 QTc 401. No acute ST changes no ST elevation. T wave inversion in 1 to aVL V5 V6 present previously no significant change from previous EKG Computer generated interpretation: Chest X-Ray 12/27/24 11:27 IMPRESSION: Stable chest without acute abnormality. Discharge Plan Discharge Patient Disposition: Home Clinical Impression: Atypical chest pain, Anxiety, Neck pain Condition: Stable Prescriptions: No Action ergocalciferol (vitamin D2) 1,250 mcg (50,000 unit) capsule 1,250 mcg PO .weekly Qty: 12 1RF mecobalamin (vitamin B12) 5,000 mcg tablet,disintegrating 5,000 mcg PO DAILY Qty: 90 1RF acetaminophen 500 mg capsule 500 mg PO Q6H PRN albuterol sulfate 2.5 mg /3 mL (0.083 %) solution for nebulization 2.5 mg INHALATION QID PRN (Reason: shortness of breath or wheezing) Qty: 180 2RF pantoprazole [Protonix] 40 mg tablet,delayed release (DR/EC) 40 mg PO DAILY Qty: 30 0RF nicotine 21-14-7 mg/24 hr patch, TD daily, sequential See Rx Instructions transdermal .COMPLEX Qty: 56 0RF Rx Instructions: apply 1-21 mg NICOTINE PATCH daily for 28 days; follow with 1-14 mg PATCH daily for 14 days, then 1-7mg PATCH daily for 14 days transdermal amitriptyline 10 mg tablet 10 mg PO DAILY Qty: 30 0RF atorvastatin [Lipitor] 10 mg tablet 10 mg PO DAILY Qty: 90 0RF losartan 100 mg tablet 100 mg PO DAILY Qty: 90 0RF buspirone 10 mg tablet See Rx Instructions .ROUTE .COMPLEX Qty: 60 2RF Dose Instruction: TAKE 1 TABLET BY MOUTH TWICE DAILY Rx Instructions: TAKE 1 TABLET BY MOUTH TWICE DAILY albuterol sulfate 90 mcg/actuation HFA aerosol inhaler See Rx Instructions .ROUTE .COMPLEX Qty: 18 2RF Dose Instruction: INHALE 2 PUFFS BY MOUTH EVERY 4 HOURS Rx Instructions: INHALE 2 PUFFS BY MOUTH EVERY 4 HOURS Discharge Orders: Discharge ED (Routine); Ordered 12/27/24 Ordered By: Gordon Vasquez Referrals: Sandra Park FNP [Primary Care Provider, Family Practice] Discharge Diet: Usual diet Discharge Activity: Resume usual activity Patient Instructions: Chest Pain (ED), Opioid Safety, Pain Management, Patient Portal & Tj Instructions Activity Restrictions/Additional Instructions: Thank you for choosing [facility] for your healthcare needs today. It is very important that you follow up as instructed or that you return to the Emergency Department should you have concerns or if your condition changes or worsens in any way. Emergency department visits are focused on emergent conditions, in some cases you may require further evaluation on an outpatient basis. You were seen in the emergency room complaining of shaking and tingling throughout your body you are also mentioned you had some chest discomfort at times. Your laboratory tests are normal your cardiac enzymes EKG were all normal as well. Recommend you follow-up with your primary care doctor. (Please note that included in your discharge packet is information concerning opioid safety and pain management. This information is given to all patients were discharged from the ER regardless of their discharge diagnosis or the medicines they usually take or are prescribed.) Print Language: Croatian Coding Level of Care Code ED Independent Trader for Kirk Cabral
[2024-12-27 11:39] LABS: Hematocrit 43.9 % (36-47); Hemoglobin 14.80 g/dL (11.27-16.99); Mean Corpuscular HGB Conc 33.7 g/dL (30-55); Mean Corpuscular Hemoglobin 32.6 pg (27-33); Mean Corpuscular Volume 96.7 fl (85-98); Nucleated Red Blood Cells % 0 %; Platelet Count 412 10^3/cmm (157-399); Red Blood Count 4.54 10^6/uL (3.85-5.65); White Blood Count 7.76 10^3/uL (3.29-11.43)
[2024-12-27 12:04] LABS: Alanine Aminotransferase 16 U/L (0-33); Albumin Level 4.9 g/dL (3.5-5.2); Alkaline Phosphatase 122 U/L (35-105); Anion Gap 14.3 (5-19); Aspartate Amino Transferase 17 U/L (0-32); Blood Urea Nitrogen 8 mg/dL (8-23); Calcium 9.8 mg/dL (8.5-10.5); Carbon Dioxide 28 mmol/L (22-29); Chloride 103 mmol/L (98-107); Globulin 2.6 g/dL (1.3-4.6); Glucose 95 mg/dL (65-115); Osmolality Calculated 290 mOsm/kg (285-295); Potassium 4.3 mmol/L (3.5-5.1); Sodium 141 mmol/L (136-145); Total Protein 7.5 g/dL (6.6-8.7); Troponin(5th) Baseline 11 ng/L (0-10)
[2024-12-27 12:05] VITALS: BP 160/83; PULSE 80; O2SAT 96
[2024-12-27 12:30] VITALS: BP 137/89; BP 157/68; BP 167/62; PULSE 59; PULSE 62
[2024-12-27 13:41] LABS: Troponin 5 2HR 10.19 ng/L (0-10)
[2024-12-27 13:42] LABS: Troponin 5 2HR Delta -0.81 ABS# (0-10)
[2024-12-27 14:13] VITALS: BP 155/76; PULSE 58; O2SAT 95
== END 2024-12-27 14:14 | disposition home or self-care (01) ==
PROVIDERS: Emergency Provider Family Medicine; PCP Nurse Practitioner Family
DX: R07.89 Other chest pain (principal); F41.9 Anxiety disorder, unspecified; M54.2 Cervicalgia; F17.210 Nicotine dependence, cigarettes, uncomplicated
CPT/HCPCS: 36415; 71045; 80053; 84484; 85025; 93005; 99285

== ENCOUNTER → 2025-01-13 12:55 | Outpatient (BNVA) | payer MEDICARE, SELFPAY | PROVIDERS: PCP Nurse Practitioner Family; Visit Provider Nurse Practitioner Family | DX: L24.9 Irritant contact dermatitis, unspecified cause (principal); L85.8 Other specified epidermal thickening; L82.1 Other seborrheic keratosis; L81.4 Other melanin hyperpigmentation; L57.8 Other skin changes due to chronic exposure to nonionizing radiation; X32.XXXA Exposure to sunlight, initial encounter | CPT/HCPCS: 99214 ==